=== PATIENT | female | born 1965 | race Two or more races ===

== ENCOUNTER 2017-02-11 13:35 | Outpatient (CLI) | payer OTHER | END 2017-02-11 13:36 | disposition home or self-care (01) | DX: M17.11 Unilateral primary osteoarthritis, right knee (principal); M25.561 Pain in right knee ==

== ENCOUNTER 2017-09-01 09:29 | Outpatient (CLI) | payer OTHER ==
--- NOTE | 2017-09-02 07:35 | MRI Report ---
EXAM: RIGHT KNEE MRI WITHOUT CONTRAST EXAM DATE: 09/01/2017 10:46 a.m. CLINICAL HISTORY: Right knee pain since February 2017. COMPARISON: Right knee radiography from 02/11/2017. TECHNIQUE: Multiplanar, multisequence T1-weighted and fluid-sensitive sequences of the knee without c ontrast. Other: None. FINDINGS: Bones and articular cartilage: Tiny marginal osteophytes at the medial femoral condyle and medial tib ial plateau. No acute fracture or bone lesions. 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 G rade 2-3 chondromalacia at the patella. Medial Meniscus: Horizontal tear at the posterior horn and body. A small portion of the medial menisc al body is flipped inferomedially within the medial tibial recess (coronal images 16 and 15). Lateral Meniscus: The lateral meniscus is intact. Cruciate Ligaments: The anterior and posterior cruciate ligaments are intact. Collateral Ligaments: The medial collateral and lateral collateral ligamentous structures are intact. Tendons: The quadriceps, patellar, semimembranosus, and popliteus tendons are unremarkable. Musculature: No edema or fatty atrophy. Other: No effusion. No popliteal cyst. There is a small 5 x 2 x 3 mm loose body adjacent to the anter ior mid aspect of the anterior cruciate ligament (sagittal image 14 and coronal image 14). The media l and lateral retinacula are intact. The subcutaneous tissues and fat pads are unremarkable. IMPRESSION: 1. 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 2. Horizontal tear at the posterior horn and body of the medial meniscus. A small portion of the medi al meniscal body is flipped inferomedially within the medial tibial recess. 3. Small 5 x 2 x 3 mm loose body adjacent to the anterior cruciate ligament. [facility] MUSCULOSKELETAL RADIOLOGY SECTION Referring Provider Line: [phone] SITE ID: [id number]
== END 2017-09-01 09:30 | disposition home or self-care (01) ==
LOC: DI 09:29
PROVIDERS: ATTEND Nurse Practitioner Family
DX: M94.261 Chondromalacia, right knee (principal); S83.241A Other tear of medial meniscus, current injury, right knee, initial encounter; M23.41 Loose body in knee, right knee

== ENCOUNTER 2019-01-29 11:09 | Outpatient (CLI) | payer OTHER ==
[2019-01-29 12:00] LABS: ALBUMIN 3.7 g/dL (3.2-5.5); ALBUMIN/GLOBULIN RATIO 1.1 (1.0-2.2); ALKALINE PHOSPHATASE 57 IU/L (42-121); ALT ALANINE AMINOTRANSFERASE 26 IU/L (10-60); AST ASPARTATE AMINOTRANSFERASE 30 IU/L (10-42); BILIRUBIN,TOTAL 1.1 mg/dL (0.2-1.0); BUN - BLOOD UREA NITROGEN 15 mg/dL (6-20); CALCIUM 9.4 mg/dL (8.5-10.3); CARBON DIOXIDE - CO2 31 mmol/L (21-32); CHLORIDE 102 mmol/L (101-111); CHOL/HDL RATIO 3.7 (<4.4); CHOLESTEROL 178 mg/dL; CREATININE 0.5 mg/dL (0.4-1.0); GFR - MDRD 128 (>89); GLUCOSE 194 mg/dL (70-100); HDL CHOLESTEROL 48 mg/dL; LDL CHOLESTEROL,CALCULATED 101 mg/dL; LDL/HDL RATIO 2.1 (<4.4); SODIUM 141 mmol/L (135-145); TOTAL PROTEIN 7.2 g/dL (6.7-8.2); VLDL CHOLESTEROL 29 mg/dL
[2019-01-29 13:01] LABS: HB2 TOTAL 15.3 g/dL; HEMOGLOBIN A1C 1.09 g/dL; HEMOGLOBIN A1C % 8.7 % (4.6-6.2)
== END 2019-01-29 11:10 | disposition home or self-care (01) ==
LOC: LAB 11:09
PROVIDERS: ATTEND Nurse Practitioner Family
DX: D50.8 Other iron deficiency anemias (principal); E08.9 Diabetes mellitus due to underlying condition without complications; E78.5 Hyperlipidemia, unspecified
CPT/HCPCS: 36415; 80053; 80061; 82746; 82747; 83036; 83721

== ENCOUNTER 2023-02-17 23:05 | Emergency (ER) | payer OTHER ==
--- NOTE | 2023-02-18 00:24 | ED Physician Documentation ---
PD HPI ABD PAIN - Stated complaint Stated Complaint: FEMALE - Chief complaint Chief Complaint: Abd Pain - History obtained from History obtained from: Patient - Additional information Additional information: Patient is a 57-year-old female with a history of a prolapsed uterus presenting for evaluation of lower abdominal pain that started a few hours ago that she describes as cramping.Patient states that the pain lasted for approximately 2 hours and has since resolved.Pain was still present when she initially presented and she was concerned that that her prolapsed uterus was the cause of the pain. She denies any associated nausea, vomiting, diarrhea, difficulties with urination.She states she no longer has any symptoms and feels well. Review of Systems Constitutional: denies: Fever Nose: denies: Congestion Cardiac: denies: Chest pain / pressure Respiratory: denies: Dyspnea GI: denies: Vomiting : denies: Dysuria, Discharge, Vaginal bleeding Neurologic: denies: Headache PD PAST MEDICAL HISTORY - Past Medical History Cardiovascular: Hypertension Endocrine/Autoimmune: Type 2 diabetes - Past Surgical History General: Other - Present Medications Home Medications: Ambulatory Orders Medication Instructions Recorded Confirmed Ascorbic Acid [Vitamin C] 1,000 mg PO DAILY 02/14/15 02/14/15 Cholecalciferol (Vitamin D3) 5,000 unit PO DAILY 02/14/15 02/14/15 [Vitamin D] Lisinopril/Hydrochlorothiazide 1 each PO DAILY 02/14/15 02/14/15 [Lisinopril-Hctz 20-25 mg Tab] Multivit-Minerals/Folic Acid 200 mcg PO DAILY 02/14/15 02/14/15 [Adult Multivitamin Gummies] Omeprazole [PriLOSEC] 20 mg PO DAILY 02/14/15 02/14/15 Sprintec 28 1 tab PO DAILY 02/14/15 02/14/15 Vitamin B Complex [B Complex] 1 each PO DAILY 02/14/15 02/14/15 - Allergies Allergies/Adverse Reactions: Allergies Allergy/AdvReac Type Severity Reaction Status Date / Time No Known Drug Allergies Allergy Verified 02/17/23 23:12 - Social History Smoking Status: Unknown if ever smoked PD ED PE NORMAL - General General: Alert and oriented X 3, No acute distress, Well developed/nourished - HEENT HEENT: Atraumatic - Neck Neck: Supple, no meningeal sign - Cardiac Cardiac: RRR - Respiratory Respiratory: No respiratory distress, Clear bilaterally - Abdomen Abdomen: Normal bowel sounds, Soft, Non tender, Non distended - Derm Derm: Warm and dry - Neuro Neuro: Normal speech Results - Vitals Vitals: Vital Signs - 24 hr 02/17/23 02/17/23 02/18/23 23:12 23:15 00:31 Temperature 36.5 C Heart Rate 88 79 83 Respiratory 16 19 16 Rate Blood Pressure 147/85 H 136/86 H 109/76 O2 Saturation 99 98 99 Oxygen O2 Source Room air PD Medical Decision Making - ED course ED course: Patient presenting for evaluation of lower abdominal cramping That was present for 2 hours. The pain has since resolved. She has no tenderness on her abdominal exam. She has no other associated symptoms. She does not have symptoms to suggest a UTI. She is symptom-free upon my evaluation. As such we discussed imaging and labs but as her symptoms have resolved did not feel there was an emergent need for testing. Patient agrees. She is comfortable on holding off on further evaluation. She understands however if her symptoms were to recur or she develop any new symptoms then I would recommend return to the ER. Departure - Departure Disposition: 01 Home, Self Care Clinical Impression: Abdominal cramping Condition: Stable Instructions: ED Abdominal Pain Female Non-Specific Abdominal Pain Comments: It is unclear what may have caused your abdominal pain that you are experiencing earlier tonight. It is reassuring that your pain has gone away and that you do not have tenderness in your abdomen or other symptoms. As your symptoms have resolved I think it is reasonable to hold off on any testing here tonight. However if it anytime your symptoms recur or you have any new symptoms that are concerning to you please consider return to the emergency department. Discharge Date/Time: 02/18/23 00:32
[2023-02-18 00:32] VITALS: BP 109/76
== END 2023-02-18 00:32 | disposition home or self-care (01) ==
LOC: ED 23:05
DX: R10.30 Lower abdominal pain, unspecified (principal); I10 Essential (primary) hypertension
CPT/HCPCS: 99283

== ENCOUNTER 2023-07-11 10:54 | Outpatient (CLI) | payer OTHER | END 2023-07-11 10:55 | disposition home or self-care (01) | LOC: NS 10:54 | PROVIDERS: ATTEND Nurse Practitioner Family | DX: Z71.3 Dietary counseling and surveillance (principal); E11.65 Type 2 diabetes mellitus with hyperglycemia; E78.00 Pure hypercholesterolemia, unspecified; E66.01 Morbid (severe) obesity due to excess calories; Z68.41 Body mass index [BMI] 40.0-44.9, adult; Z79.84 Long term (current) use of oral hypoglycemic drugs | CPT/HCPCS: 97802 ==

== ENCOUNTER 2024-06-20 13:17 | Outpatient (CLI) | payer OTHER ==
--- NOTE | 2024-06-20 18:51 | XRAY Report ---
PROCEDURE: Knee 3V RT INDICATIONS: RIGHT KNEE PAIN TECHNIQUE: 3 views of the knee(s) were acquired. COMPARISON: 09/01/2017 and 02/11/2017. FINDINGS: Bones: No fractures or dislocations. No patella subluxation. Mild to moderate tricompartmental oste oarthritis is seen most notably involving medial femoral tibial compartment with significant joint sp syd narrowing, subchondral sclerosis and marginal osteophyte formation. No suspicious bony lesions. Soft tissues: No knee joint effusion. No suspicious soft tissue calcifications or masses. IMPRESSION: No acute right knee fracture or dislocation. Mild to moderate tricompartmental osteoarthritis. No sig nificant joint effusion. Reviewed by: Malachi Abdullahi MD on 06/20/2024 6:50 PM PDT Approved by: Malachi Abdullahi MD on 06/20/2024 6:50 PM PDT Station ID: [id number]
== END 2024-06-20 13:18 | disposition home or self-care (01) ==
LOC: DI 13:17
PROVIDERS: ATTEND Nurse Practitioner Family
DX: M17.11 Unilateral primary osteoarthritis, right knee (principal)